=== PATIENT | female | born 2005 | race Caucasian/White ===

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

== ENCOUNTER 2023-02-21 17:14 | Observation (INO) | payer OTHER, SELFPAY ==
[2023-02-21 17:56] LABS: Appearance Urine Cloudy (Clear); Bacteria Urine 1+ /hpf; Bilirubin Urine Negative (Negative); Blood Urine Negative (Negative); Color Urine Yellow (Yellow); Glucose Urine UA Negative (Negative); Ketones Urine Trace mg/dL (Negative); Leukocyte Esterase Ur 1+ LEU/UL (Negative); Nitrate Urine Negative (Negative); Non Pathogenic Casts 0-2; Protein Urine Trace mg/dL (Negative); RBC Urine 0-2 /hpf (0-2); Specific Grav Ur 1.025 (1.001-1.035); Squamous Epithelial Cell Urine Occasional /hpf (Few); pH Urine 6.5 (5.0-9.0)
[2023-02-21 17:59] LABS: Add Urine Microscopic? YES
[2023-02-21 18:00] VITALS: BMI 23.6
--- NOTE | 2023-02-21 18:00 | OBADM ---
This patient, Precious Velázquez, admitted to the OB room 115 for observation. Patient/family oriented to hospital policies and general routines including ID bracelet, bed and alarms, visiting hours, pain management, procedures, bathroom and other care routines, personal items, smoking policy, room service/diet, and visiting hours. Patient/Family are encouraged to report perceived risks to care and to ask questions if they do not understand what they are told or what they should do.
[2023-02-21 18:38] VITALS: BP 128/76; PULSE 92; RESP 16; TEMP 36.6
[2023-02-21 19:00] VITALS: BP 116/71; PULSE 88
--- NOTE | 2023-02-21 19:08 | PM.OBTRLD ---
OB - Triage/Final Diagnosis Visit Information Date of evaluation: 02/21/23 Reason for evaluation: threatened labor Comments/Additional reasons for admission: I have assessed the risk for this patient, Precious Charles Eber, and determined that she would benefit from observation care. Evaluation Laboratory results: Laboratory Tests 02/21/23 17:44 Urine Color Yellow Urine Appearance Cloudy H Urine pH 6.5 Ur Specific [place] 1.025 Urine Protein Trace Urine Glucose (UA) Negative Urine Ketones Trace H Ur Blood (Man) Negative Urine Nitrate Negative Urine Bilirubin Negative Urine Urobilinogen 1.0 Leukocyte Esterase Rfl 1+ H Urine RBC 0-2 Urine WBC 6-10 H Ur Squamous Epith Cells Occasional Urine Bacteria 1+ H Urine Casts 0-2 Vital signs: Vital Signs - 24 hr 02/21/23 18:00 02/21/23 18:38 02/21/23 19:00 Pulse Rate 92 88 Blood Pressure 128/76 116/71 Oxygen Delivery Room Air
--- NOTE | 2023-02-21 19:12 | PC.NURSE ---
Discharge instructions reviewed with patient. labor precautions and kick counts reviewed with patient and instructional handouts provided to patient. Patient states understanding of education, precautions and instructions. Patient denies any questions. Patient instructed to follow-up at her next OB appoint on 02/22/2023, with Dr. Cash as scheduled.
== END 2023-02-21 19:20 | disposition home or self-care (01) ==
PROVIDERS: Admitting Provider Student in an Organized Health Care Education/Training Program; Visit Provider Student in an Organized Health Care Education/Training Program
DX: O47.03 False labor before 37 completed weeks of gestation, third trimester (principal); O26.893 Other specified pregnancy related conditions, third trimester; R10.9 Unspecified abdominal pain; Z3A.35 35 weeks gestation of pregnancy
CPT/HCPCS: 81001; 87086; 87088; G0378; G0379

== ENCOUNTER 2023-03-05 11:42 | Outpatient (CLI) | payer OTHER, SELFPAY ==
[2023-03-05 13:37] LABS: Hematocrit 33.5 % (37.0-47.0); Hemoglobin 10.5 g/dL (12.0-15.0); Immature Platelet Fraction Pct 5.4 % (0.9-11.2); Mean Corpuscular HGB Conc 31.3 g/dl (32-36); Mean Corpuscular Hemoglobin 22.2 pg (26-34); Mean Platelet Volume 11.4 fl (7.4-10.4); Platelet Count Result 286 k/mm3 (150-375); Red Blood Count 4.72 M/mm3 (4.2-5.4); Red Cell Distribution Width 20.9 % (11.5-14.5); White Blood Count 9.6 K/mm3 (4.5-10.0)
[2023-03-05 13:44] LABS: Glucose 1 Hour PP 50gm Dose 114 mg/dL
[2023-03-05 14:29] LABS: HIV 1/2 Ab P24 Ag Result Negative (Negative)
== END 2023-03-05 11:43 | disposition home or self-care (01) ==
LOC: ANHLAB 11:43
PROVIDERS: PCP Family Medicine; Visit Provider Student in an Organized Health Care Education/Training Program
DX: Z34.90 Encounter for supervision of normal pregnancy, unspecified, unspecified trimester (principal); Z3A.00 Weeks of gestation of pregnancy not specified
CPT/HCPCS: 36415; 82947; 85027; 85055; 86703; G0432

== ENCOUNTER 2023-03-17 10:35 | Outpatient (CLI) | payer OTHER, SELFPAY ==
--- NOTE | ~2023-03-17 | US_ITS ---
EXAMINATION: US OB follow up DATE: 03/17/2023 11:48 INDICATION: Intrauterine growth retardation during third trimester . TECHNIQUE: Real-time ultrasound of the pelvis was performed. The interpreting radiologist was not pre sent for the study. COMPARISON: 02/22/2023 FINDINGS: There is a single living fetus in vertex presentation. The placenta is posterior. heart rate i s 135 beats per minute (bpm). The amniotic fluid index is 10.8 cm, which is normal (5th%-95%: 7.2-22 .6 cm at 39 weeks estimated gestational age). The following biometric data were obtained: BPD: 8.9 cm -> 36 weeks 1 days Head circumference: 32.2 cm -> 36 weeks 2 days Abdominal circumference: 31.3 cm -> 35 weeks 2 days Femur length: 7.2 cm -> 37 weeks 0 days These measurements are concordant. Head circumference to abdominal circumference ratio: 1.03 (normal range 0.92-1.08). Estimated weight: 2809 g (+/-) 421 g or 6 lbs. 3 oz. (+/-) 15 oz. IMPRESSION: 1. Single living fetus in vertex presentation with heart rate of 133 bpm. 2. Normal amniotic fluid index of 11.8 cm. 3. Estimated weight is 8th percentile by Hadlock criteria when 03/24/2023 is used as the estimate d date of delivery (JUVENAL). Please correlate with clinical information or earlier ultrasounds for most accurate JUVENAL. Reviewed, dictated and finalized at location A. IMPRESSION: 1. Single living fetus in vertex presentation with heart rate of 133 bpm. 2. Normal amniotic fluid index of 11.8 cm. 3. Estimated weight is 8th percentile by Hadlock criteria when 03/24/2023 i s used as the estimated date of delivery (JUVENAL). Please correlate with clinical information or earlier ultrasounds for most accurate JUVENAL.
== END 2023-03-17 10:36 | disposition home or self-care (01) ==
PROVIDERS: PCP Family Medicine; Visit Provider Obstetrics & Gynecology
DX: O36.5990 Maternal care for other known or suspected poor fetal growth, unspecified trimester, not applicable or unspecified (principal); Z3A.00 Weeks of gestation of pregnancy not specified
CPT/HCPCS: 76816

== ENCOUNTER 2023-03-18 17:28 | Inpatient (IN) | payer OTHER, SELFPAY ==
[2023-03-18] VITALS (9 sets, daily range): BP systolic 112–133; BP diastolic 59–87; PULSE 77–97; TEMP 36.4; BMI 24.2
--- NOTE | 2023-03-18 17:28 | LDADM ---
This patient, Precious Velázquez, was admitted to Labor/Delivery/Recovery 109 on 03/18/23 at 17:28. Plans for labor, pain management and were discussed with patient. Patient/family oriented to hospital policies and general routines including ID bracelet, bed and alarms, visiting hours, pain management, procedures, bathroom and other care routines, personal items, smoking policy, room service/diet and guest tray routines, security routines, and visiting hours. Patient/Family are encouraged to report perceived risks to care and to ask questions if they do not understand what they are told or what they should do. See OBIX for further documentation.
--- NOTE | 2023-03-18 17:48 | WPDANESEPPF ---
Anes - Initial Pre Proc Eval Procedure: Labor Epidural Date/Time: 03/18/23 17:48 Surgeon: Alejo Sarmiento MD Pre Op Diagnosis: Labor pain Pre Op Diagnosis: IOL Patient Data Age: 17 Gender: F Height: Weight: Allergies Allergy/AdvReac Type Severity Reaction Status Date / Time No Known Allergies Allergy Verified 03/17/23 09:23 Home Medications Medication Instructions Recorded Confirmed Type prenat.vits,carl,avy-uwzx-axebj 1 tablet PO DAILY 08/27/22 03/17/23 History albuterol sulfate 90 mcg/actuation 2 puff inhalation Q4H PRN Wheezing 03/15/23 03/17/23 History aerosol inhaler Patient hx anesthesia problems: none Family hx anesthesia problems: none Results Review: All pre-operative results and documents have been reviewed as part of the pre-operative evaluation. PMFSH Family History Family History Other Diabetes mellitus Social History Social History Smoking status: Never smoker Alcohol intake: never Substance use: never Substance use type: marijuana Last use: 12/2022 Lack of Transportation: YES Lack of Food: Sometimes True Current Housing: I Have Housing Concerned About Future Housing: No Difficulty Paying Gas/Electric Bills: No Difficulty Paying for Meds: No Currently Unemployed: YES Education: Grade School Difficulty w/ Childcare or Family Care: No Living arrangements: with family Additional living arrangements comments: lives with mother Occupation/Education: unemployed Gender identity (if verbalized by the patient): Female Sexual Orientation (if Verbalized by the Patient): Straight or Heterosexual Spiritual care concerns: No Anes - Eval Final PreProcedure Day of Procedure 03/18/23 17:48 Patient weight: normal Heart: regular rate and rhythm Lungs: clear to auscultation Neurological: alert and oriented ASA classification: II Results Review: All pre-operative results and documents have been reviewed as part of the pre-operative evaluation. Informed Consent: The patient's anesthetic plan and its attendant risks and benefits were discussed with the patient/family/POA. Questions were solicited and answers provided to the satisfaction of the patient/family/POA.
[2023-03-18 18:18] LABS: Basophils Percent Auto 0.2 % (0.2-1.2); Eosinophils Absolute Auto 0.1 K/mm3 (0-0.3); Eosinophils Percent Auto 1.1 % (0-4.4); Hematocrit 37.7 % (37.0-47.0); Hemoglobin 11.7 g/dL (12.0-15.0); Immature Granulocyte Absolute 0.05 K/mm3 (0.00-0.031); Immature Granulocyte Percent A 0.4 % (0-0.5); Lymphocytes Absolute Auto 2.34 K/mm3 (0.9-3.2); Lymphocytes Percent Auto 19.3 % (18.3-44.2); Mean Corpuscular Hemoglobin 21.5 pg (26-34); Mean Corpuscular Volume 69.3 fl (80-100); Mean Platelet Volume 10.5 fl (7.4-10.4); Monocytes Absolute Auto 0.7 K/mm3 (0.1-0.6); Monocytes Percent Auto 5.4 % (2.6-8.5); Neutrophils Absolute Auto 8.9 K/mm3 (1.3-6.7); Neutrophils Percent Auto 73.6 % (45.5-73.1); Platelet Count Result 351 k/mm3 (150-375); Red Blood Count 5.44 M/mm3 (4.2-5.4); White Blood Count 12.1 K/mm3 (4.5-10.0)
[2023-03-18] MEDS: DINOPROSTONE 10 MG VAG INSERT VAGINAL (18:30)
[2023-03-18 18:34] LABS: Anisocytosis 1+ (NORMAL); Microcytosis 1+ (NORMAL); Platelet Estimate Adequate (Adequate)
[2023-03-18 18:35] LABS: Ovalocytes 1+ (NORMAL); Schistocytes None Seen (NORMAL)
[2023-03-19] VITALS (121 sets, daily range): BP systolic 83–154; BP diastolic 52–95; PULSE 70–182; RESP 16; TEMP 36.5–37.2; O2SAT 89–100
[2023-03-19] MEDS: LACTATED RINGERS 1,000 ML 125 ML IV CONT ×3 (06:59→15:28)
[2023-03-19] MEDS: OXYTOCIN 30 UNITS/NS 500 ML 30 UNITS/500 ML BAG 6 UNITS IV CONT (07:00)
[2023-03-19] MEDS: fentaNYL CITRATE INJ (*CRX) 100 MCG/2 ML VIAL 50 MCG IV PUSH (07:58)
--- NOTE | 2023-03-19 09:07 | PM.OBPNLAB ---
Pain Control Date/time seen: 03/19/23 09:07 Pain control: epidural Pelvic Exam Dilation (cm): 2 Effacement (%): 75 station: -1 Amniotic membrane status: Ruptured (AROM, clear 0900) Contractions Monitor mode: External Contraction frequency: 2 Status status: Category l Assessment and Plan Pitocin rate (mU/min): 12 Assessment: induction ongoing Plan: continuous present management
--- NOTE | 2023-03-19 12:40 | PC.NURSE ---
1232 - Mother remains on the phone. Resource provided with educational trifold for bonding and feeding infant.
--- NOTE | 2023-03-19 15:50 | WPDHPUPDATE1 ---
History and Physical Update Update Date/Time: 03/19/23 15:50 History and Physical has been reviewed, including an updated exam of the patient. There are NO changes in the patient's condition. Risks, benefits, and alternatives have been discussed and questions answered. Patient agrees to proceed with procedure.
--- NOTE | 2023-03-19 15:50 | WPDOBADMIT ---
Obstetrics - Admit Note Admission Note: record reviewed. No pertinent additions to the history and/or any subsequent changes in the physical findings that are not consistent with the expected course of the were found. Additions to the history and/or subsequent changes in the physical findings follow. None.
--- NOTE | 2023-03-19 15:51 | PM.OBPRVD ---
OB - Delivery Note Procedure Events: Intrauterine Growth Restriction (IUGR) Induction method: Per Cervidil Protocol Delivery augmentation: Rupture of Membranes and Pitocin Delivery monitor: External FHT and Internal Uterine Route of delivery: Episiotomy description: None Laceration Description: Vaginal Specimen: Yes Quantitative Blood Loss (ml): 200 Anesthesia type: Epidural Disposition: Floor Complications: none Narrative: And draped in the usual manner for this procedure. Maternal expulsive efforts readily delivered vertex. Rest of baby was delivered without difficulty, cord clamped cut, baby placed on maternal abdomen. Placenta delivered spontaneously, uterus well contracted and minimal bleeding. Cervix vagina vulva were inspected with vaginal wall laceration superficial, not bleeding. Immediate condition of mother and baby both excellent. [place] Baby Weeks of gestation at delivery: 39 gender: Female Weight (pounds): 5 Weight (ounces): 4 presentation: vertex position: Right Occiput Anterior Placenta delivery description: Spontaneous Cord Vessel Description: 3 Vessels score one minute: 8 score five minutes: 9 AMG Delivery Billing Delivery Delivery: Delivery Charge
[2023-03-19] MEDS: OXYTOCIN 30 UNITS/NS 500 ML 30 UNITS/500 ML BAG 125 UNITS IV CONT (16:17)
[2023-03-19 17:06] LABS: Rapid Plasma Reagin Non-Reactive (NonReactive)
--- NOTE | 2023-03-19 19:27 | OBPPTRN ---
Patient transferred to post room #286 via wheelchair. Oriented to unit, room, information board, rooming in, admission packet and security measures. Patient verbalizes understanding.
[2023-03-20 00:16] VITALS: BP 121/61; PULSE 98; RESP 18; TEMP 36.9; O2SAT 99
[2023-03-20 05:08] VITALS: BP 109/58; PULSE 66; RESP 16; TEMP 36.7; O2SAT 99
[2023-03-20 05:08] LABS: Hematocrit 29.7 % (37.0-47.0); Hemoglobin 9.3 g/dL (12.0-15.0)
--- NOTE | 2023-03-20 07:53 | WPDANLDPN2 ---
Anes-Prog Note L&D Date/Time: 03/20/23 07:53 Comfortable throughout: labor and delivery Neuraxial method: epidural Epidural/Spinal procedure site: clean & non-tender Neuro status: Neuro function grossly intact. Cardiovascular status: normal Respiratory status: normal Airway patency: baseline Mental status: baseline Post-Op hydration status: normal Vital Signs: Last Vital Signs Temp 98.1 F 03/20/23 05:08 Pulse 66 03/20/23 05:08 Resp 16 03/20/23 05:08 BP 109/58 L 03/20/23 05:08 Pulse Ox 99 03/20/23 05:08 O2 Del Method Room Air 03/19/23 19:11 Pain score (VAS): 0 I/O: Intake & Output 03/19/23 03/19/23 03/20/23 15:59 23:59 07:59 Intake Total 1999 Balance 1999 Post-procedural complaints: none Patient feedback: Patient satisfied with anesthetic care.
[2023-03-20 08:00] VITALS: BP 119/73; PULSE 78; RESP 16; TEMP 36.7; O2SAT 100
--- NOTE | 2023-03-20 09:04 | PM.OBPNVD ---
OB - PN: Subj Subjective Date/time seen: 03/20/23 09:04 Narrative: PPD#1 Precious reports doing well today. Her bleeding is mold stamper and repairer. Her pain is controlled. She is tolerating regular diet, voiding, passing gas, and ambulating without issues. She is breast feeding. OB - PN: Obj Data Labs 03/20/23 04:20 Labs: Laboratory Results - last 24 hr 03/18/23 03/20/23 18:02 04:20 Hgb 9.3 L Hct 29.7 L RPR Non-reactive OB - PN A/P Plan day: 1 Plan: routine care Time Spent With Patient Time: Total time spent is greater than 50% in coordination of care (as documented) at patient's floor/unit and/or counseling patient: Review of Systems Constitutional: Constitutional: Denies chills, Denies fever(s) and Denies headache(s) Eyes: Eyes: Denies change in vision ENT: Denies dizziness and Denies headache(s) Cardiovascular: Cardiovascular: Denies chest pain, Denies palpitations and Denies dyspnea Respiratory: Respiratory: Denies cough and Denies dyspnea Gastrointestinal: Gastrointestinal: Denies nausea and Denies vomiting Neurologic: Denies dizziness and Denies headache(s) Endocrine: Endocrine: Denies palpitations Exam Const: General: cooperative, comfortable and no acute distress Orientation/consciousness: patient oriented x3 Resp: Effort & Inspection: normal respiratory effort Auscultation: clear to auscultation bilaterally Cardio: Rate: regular rate GI: Inspection: non-distended GI Palp: No abdominal tenderness and Yes Soft to palpation Auscultation: normal bowel sounds : Other: fundus firm Skin: General skin exam: normal color Neuro: General: patient oriented x3 Extrem: General: normal to inspection Psych: Appearance: grossly normal Affect: normal affect Attitude: cooperative
[2023-03-20] MEDS: MULTIVIT/MIN/PREN/FOL AC/IRON TABLET 1 TAB PO (10:30)
[2023-03-20] MEDS: POLYSACCHARIDE IRON COMPLEX 150 MG CAPSULE PO ×2 (10:30→16:54)
[2023-03-20] MEDS: DOCUSATE SODIUM 100 MG CAPSULE PO ×2 (10:30→16:54)
[2023-03-20 18:59] VITALS: BP 105/64; PULSE 95; RESP 16; TEMP 36.7; O2SAT 98
[2023-03-21 08:00] VITALS: BP 101/56; PULSE 88; RESP 16; TEMP 36.8; O2SAT 100
--- NOTE | 2023-03-21 08:01 | PM.OBPNVD ---
OB - PN: Subj Subjective Date/time seen: 03/21/23 08:01 Narrative: PPD#2 Precious reports doing well today. Her bleeding is light. Her pain is controlled. She is tolerating regular diet, voiding, passing gas, and ambulating without issues. She is breast and bottle feeding. OB - PN: Obj Data Labs 03/20/23 04:20 OB - PN A/P Assessment and Plan (1) Normal vaginal delivery: Code(s): O80 - Encounter for full-term uncomplicated delivery Status: Acute Plan day: 1 Plan: routine care and discharge home Comments: - Pelvic rest; take meds as prescribed - ER return precautions: fever, n/v/abd pain, bleeding, HTN Time Spent With Patient Time: Total time spent is greater than 50% in coordination of care (as documented) at patient's floor/unit and/or counseling patient: Review of Systems Constitutional: Constitutional: Denies chills, Denies fever(s) and Denies headache(s) Eyes: Eyes: Denies change in vision ENT: Denies dizziness and Denies headache(s) Cardiovascular: Cardiovascular: Denies chest pain, Denies palpitations and Denies dyspnea Respiratory: Respiratory: Denies cough and Denies dyspnea Gastrointestinal: Gastrointestinal: Denies nausea and Denies vomiting Neurologic: Denies dizziness and Denies headache(s) Endocrine: Endocrine: Denies palpitations Exam Const: General: cooperative, healthy appearing, comfortable and no acute distress Orientation/consciousness: patient oriented x3 Resp: Effort & Inspection: normal respiratory effort Auscultation: clear to auscultation bilaterally Cardio: Rate: regular rate GI: Inspection: non-distended GI Palp: No abdominal tenderness and Yes Soft to palpation Auscultation: normal bowel sounds : Other: fundus firm Skin: General skin exam: normal color Neuro: General: patient oriented x3 Extrem: General: normal to inspection Psych: Appearance: grossly normal Affect: normal affect Attitude: cooperative
[2023-03-21] MEDS: MULTIVIT/MIN/PREN/FOL AC/IRON TABLET 1 TAB PO (10:21)
[2023-03-21] MEDS: DOCUSATE SODIUM 100 MG CAPSULE PO (10:21)
[2023-03-21] MEDS: POLYSACCHARIDE IRON COMPLEX 150 MG CAPSULE PO (10:21)
[2023-03-21] MEDS: MEASLES,MUMPS,RUBELLA VACCINE 0.5 ML VIAL SUB-Q (13:32)
[2023-03-21] MEDS: TETANUS,DIPHTHERIA,AC PERTUSSIS ADULT (0.5 ML) BOOSTRIX IM (13:38)
--- NOTE | 2023-03-21 14:26 | PC.NURSE ---
Patient viewed the discharge video Mother & Baby Care, The First Two Weeks . Patient was given the opportunity and encouraged to ask questions. Patient verbalized understanding of information shared and has been given the mother/baby guide for home reference.
--- NOTE | 2023-03-21 15:36 | PCCCNOTE ---
Care Coordination met with pt. this morning to discuss discharge planning. Pt.'s current D/C plan is to return home with her mother and baby. Pt. states her mother is very supportive and gathered everything they need to safely bring baby home. Pt. has car seat, place for baby to sleep, and is current with WIC. Pt. denies any concerns about bringing baby home. She has been provided a care basket. Will follow.
[2023-03-22 08:29] VITALS: BP 113/67; PULSE 82; RESP 18; TEMP 36.9; O2SAT 100
--- NOTE | 2023-03-23 10:20 | PM.OBDSVD ---
DS: Admitting Diagnosis Discharge Date 03/21/23 Admitting Diagnosis Medical induction of labor IUGR DS: Discharge Diagnosis Discharge Diagnosis (1) Normal vaginal delivery: Code(s): O80 - Encounter for full-term uncomplicated delivery Status: Acute OB - DS: Summary OB Procedures : Ultrasound OB Procedures Intrapartum: Spontaneous Vag Delivery OB Procedures: : None Peripartum Data Infant Delivery Method: Natural Vaginal Laceration Description: Vaginal - 1st Degree complications: none 1: Gender: Female Disposition of : home Status at Discharge Functional status at discharge: independent ambulation Overall status at discharge: patient is back to baseline Time Spent with Patient Time attestation: Total time spent providing and/or coordinating discharge services: Time spent: Less than 30 minutes Exam Const: General: cooperative, healthy appearing, comfortable and no acute distress Orientation/consciousness: patient oriented x3 Resp: Effort & Inspection: normal respiratory effort Auscultation: clear to auscultation bilaterally Cardio: Rate: regular rate GI: Inspection: non-distended GI Palp: No abdominal tenderness and Yes Soft to palpation Auscultation: normal bowel sounds : Other: fundus firm Skin: General skin exam: normal color Neuro: General: patient oriented x3 Extrem: General: normal to inspection Psych: Appearance: grossly normal Affect: normal affect Attitude: cooperative DS: Data Data Completed and Pending Pending studies at discharge: Pending at discharge 03/19/23 15:43 Surgical [PTH] Routine Discharge Plan Discharge Attending physician on discharge: Ratna Cash Discharging Clinician: Ratna Cash Anticipated Discharge Date/Time: 03/21/23 11:00 Patient Disposition: Home, Self-Care Activity: may shower and pelvic rest Diet: regular Discharge Instructions: Education: Mom and Baby Guide Given to: Mother Follow-Up: Call your delivering provider's office for an appointment to be seen in: 4 Weeks Mom [facility] baby [facility] follow-up appointment. Appointment Date/Time: Wednesday, March 22, 2023 at 8:00 a.m. What to expect at your follow-up visit: Blood Pressure Check Physical Assessment Call [phone] if you are unable to keep your appointment time. BREAST CARE: * Wear a snug supportive bra. * For engorgement discomfort: Breast Feeding: * Apply warm moist washcloths * Express milk as needed to relieve engorgement * Wear loose clothing Bottle Feeding: * May apply ice packs * For sore nipples: * Identify correct latch-on * Apply warm moist washcloths before and after nursing * Air dry nipples after nursing * May apply Lansinoh cream to nipples EPISIOTOMY/PERINEAL CARE: * Until bleeding stops, use your wilma bottle after urinating * Change your pad frequently throughout the day * You may take sitz baths several times a day (fill your bathtub with warm water and soak for 20 minutes.) Do NOT bathe in the water * No tub baths until seen by your physician - You may shower ACTIVITY: * Rest as much as possible. * Do not exercise or lift anything heavier than your baby (such as laundry or other children.) * Avoid stairs or driving as much as possible. * Do not put anything into the vagina. No douching, tampons, or sexual activity until seen by physician. NOTIFY PHYSICIAN IF YOU HAVE ANY QUESTIONS OR IF ANY OF THE FOLLOWING SYMPTOMS OCCUR: * If your vaginal bleeding becomes foul smelling. * If your vaginal bleeding becomes more heavy than a period or if your bleeding changes from pink to bright red. However, you may pass an occasional walnut-sized clot once or twice for the first week . * If you experience a sharp, shooting p
== END 2023-03-21 14:45 | disposition home or self-care (01) | DRG 560 ==
LOC: ANHLDR 03-19 06:45 → ANHOB2 03-21 08:03 → ANHLDR 03-23 10:50 → ANHOB2 03-23 10:50
PROVIDERS: Admitting Provider Obstetrics & Gynecology; Visit Provider Obstetrics & Gynecology
DX: O36.5930 Maternal care for other known or suspected poor fetal growth, third trimester, not applicable or unspecified (principal); O70.0 First degree perineal laceration during delivery; Z3A.39 39 weeks gestation of pregnancy; Z37.0 Single live birth
CPT/HCPCS: 36415; 76816; 85014; 85018; 85025; 85055; 86592; 86850; 86900; 86901; 88307; 90710; 90715; A9270; J2590; J2795; J3010; J7120